=== PATIENT | male | born 1970 | race Caucasian/White ===

== ENCOUNTER 2020-06-25 14:01 | Emergency (ER) | payer MEDICAID ==
--- NOTE | 2020-06-25 14:17 | EDM.PDOC ---
ED HPI GENERAL MEDICAL PROBLEM - General Chief Complaint: Back Pain or Injury Stated Complaint: HURT HIS BACK AND FELL Time Seen by Provider: 06/25/20 14:17 Source of Information: Reports: Patient History Limitations: Reports: No Limitations - History of Present Illness INITIAL COMMENTS - FREE TEXT/NARRATIVE: patient reports falling about an hour before presentation to the ED. History of chronic back and disc issues. States he fell against some steps that went into his back. Reports pain to the legs, no weakness. Pain radiates down the inside of his legs down through the groin and stops at the knees. This is bilateral in nature. No reported cause of fall. Pain to tailbone. No loss of consciousness, no head or neck pain. Denies striking head or neck. No upper ex tremity weakness, numbness, tingling. Denies chest pain, sob, fever, cough, chills, nausea/vomiting. Blood pressure elevated here. States he has been out of anti-hypertensive medications for about a week. Has had 2 strokes. Out of pain medications but does have contract with another provider. Onset: Today, Sudden Duration: Intermittent Location: Reports: Back, Radiates to (bilateral upper legs, medial) Severity: Moderate Improves with: Reports: None Worsens with: Reports: Movement Associated Symptoms: Reports: No Other Symptoms Lower Back Pain Score (Numeric/FACES): 9 - Related Data Allergies Allergy/AdvReac Type Severity Reaction Status Date / Time tramadol Allergy Cannot Verified 06/25/20 14:20 Remember Home Meds: Home Meds Cyclobenzaprine [Flexeril] 10 mg PO TID PRN #20 tab 03/01/14 [Rx] Hydrocodone/Acetaminophen [[place] 5-325] 1 tab PO Q4H PRN #15 tablet 03/01/14 [Rx] Naproxen [Naprosyn] 500 mg PO Q12HR #20 tab 03/01/14 [Rx] Cyclobenzaprine [Flexeril] 10 mg PO TID PRN #30 tab 03/06/14 [Rx] Gabapentin [Neurontin] 100 mg PO Q8HR #30 cap 03/06/14 [Rx] Lisinopril 10 mg PO DAILY #30 tablet 03/06/14 [Rx] Metoprolol Tartrate 25 mg PO BID #60 tablet 03/06/14 [Rx] Nitroglycerin [Nitrostat] 0.4 mg SL Q2HR PRN #10 tab.sl 03/06/14 [Rx] Cyclobenzaprine [Flexeril] 10 mg PO TID #21 tab 03/26/14 [Rx] oxyCODONE 5 mg PO ASDIRECTED PRN #15 tab 03/26/14 [Rx] Past Medical History - Past Health History Medical/Surgical History: Denies Medical/Surgical History ED ROS GENERAL - Review of Systems Review Of Systems: See Below Constitutional: Reports: No Symptoms HEENT: Reports: No Symptoms Respiratory: Reports: No Symptoms Cardiovascular: Reports: No Symptoms Endocrine: Reports: No Symptoms GI/Abdominal: Reports: No Symptoms : Reports: No Symptoms Musculoskeletal: Reports: Back Pain Skin: Reports: No Symptoms Neurological: Reports: No Symptoms Psychiatric: Reports: No Symptoms Hematologic/Lymphatic: Reports: No Symptoms Immunologic: Reports: No Symptoms ED EXAM,LOWER BACK PAIN/INJURY - Physical Exam Exam: See Below Exam Limited By: No Limitations General Appearance: Alert, WD/WN, No Apparent Distress Eye Exam: Bilateral Eye: EOMI, Normal Inspection, PERRL Ears: Normal External Exam, Normal Canal, Hearing Grossly Normal, Normal TMs Nose: Normal Inspection, Normal Mucosa, No Blood Throat/Mouth: Normal Inspection, Normal Lips, Normal Teeth, Normal Gums, Normal Oropharynx, Normal Voice, No Airway Compromise Head: Atraumatic, Normocephalic Neck: Normal Inspection, Supple, Non-Tender, Full Range of Motion Respiratory/Chest: No Respiratory Distress, Lungs Clear, Normal Breath Sounds, No Accessory Muscle Use, Chest Non-Tender Cardiovascular: Normal Peripheral Pulses, Regular Rate, Rhythm, No Edema, No Gallop, No JVD, No Murmur, No Rub GI/Abdominal: Normal Bowel Sounds, Soft, Non-Tender, No Organomegaly, No Distention, No Abnormal Bruit, No Mass Back Exam: Normal Inspection, Full Range of Motion, NT Extremities: Normal Inspection, Normal Range of Motion, Non-Tender, No Pedal Edema, Normal Capillary Refill Neurological: Alert, Normal Mood/Affect, Normal Dorsiflexion, CN II-XII Intact, Normal Plantar Flexion, Normal Gait, Normal Reflexes, No Motor/Sensory Deficits, Oriented x 3, Straight Leg Raise (L), Straight Leg Raise (R) Psychiatric: Normal Affect, Normal Mood Skin Exam: Warm, Dry, Intact, Normal Color, No Rash Lymphatic: No Adenopathy Course - Vital Signs Last Recorded V/S: Last Vital Signs Temp 36.8 C 06/25/20 14:06 Pulse 106 H 06/25/20 14:06 Resp 18 06/25/20 14:06 BP 197/105 H 06/25/20 14:06 Pulse Ox 95 06/25/20 14:06 - Orders/Labs/Meds Meds: Medications Discontinued Medications Generic Name Dose Route Start Last Admin Trade Name Arvin PRN Reason Stop Dose Admin Ketorolac Tromethamine 30 mg 06/25/20 15:26 06/25/20 15:43 Ketorolac 30 Mg/Ml Sdv IM 06/25/20 15:27 30 mg ONETIME ONE Administration Departure - Departure Time of Disposition: 16:00 Disposition: Home, Self-Care 01 Condition: Good Clinical Impression: Back pain due to injury - Discharge Information *PRESCRIPTION DRUG MONITORING PROGRAM REVIEWED*: Not Applicable *COPY OF PRESCRIPTION DRUG MONITORING REPORT IN PATIENT AGUEDA: Not Applicable Instructions: Chronic Back Pain, [id number] Forms: ED Department Discharge Sepsis Event Note (ED) - Evaluation Sepsis Screening Result: No Definite Risk - Focused Exam Vital Signs: Vital Signs Temp Pulse Resp BP Pulse Ox 06/25/20 14:06 36.8 C 106 H 18 197/105 H 95 - Problem List & Annotations (1) Injury of back SNOMED Code(s): 411902165 Code(s): S39.92XA - UNSPECIFIED INJURY OF LOWER BACK, INITIAL ENCOUNTER Status: Acute - Problem List Review Problem List Initiated/Reviewed/Updated: Yes - Assessment/Plan Assessment:: exacerbation of chronic back pain secondary to injury HTN Plan: Rest Apply ice/hear alternatively Follow up with primary No narcotics. Pain contract in place. See provider for any needed management No fracture or subluxation of lumbar spine May utilize topical analgesics such as aspercreme, lidocaine, salonpas
[2020-06-25 14:18] VITALS: BP 197/105; PULSE 106
[2020-06-25] MEDS ORDERED: Ketorolac 30 MG/ML SDV IM ONE (15:26)
--- NOTE | 2020-06-25 15:52 | CT ---
[id number] CT/CT Lumbar Spine WO IV Exam: CT Lumbar Spine WO IV Clinical Data: TRAUMA COMPARISON: CORRELATION IS MADE WITH THE PLAIN FILM OF MARCH 01, 2014 FINDINGS: There is minimal loss of height of the L2 vertebral body, age indeterminate There is no fracture or subluxation otherwise There is minimal wedging of the L1 vertebral body which may be pre-existing There are early degenerative changes at the lumbosacral junction IMPRESSION: NO DEFINITE ACUTE FRACTURE OR SUBLUXATION MINIMAL DEFORMITIES OF L1 AND L2 EARLY DEGENERATIVE CHANGES Lee Noel MD 06/25/20 0071 Thank you for allowing us to participate in the care of your patient.
== END 2020-06-25 16:00 | disposition home or self-care (01) ==
LOC: VM.ED 14:01
CPT/HCPCS: 72131; 96372; 99283; J1885